=== PATIENT | female | born 1975 | race Hispanic/Latino ===

== ENCOUNTER 2024-05-17 15:59 | Emergency (ER) | payer OTHER, BC ==
[~2024-05-17] VITALS: Ht 160 cm; Wt 77.6 kg
[2024-05-17] MEDS ORDERED: CYCL10TA16 PO (17:28)
[2024-05-17] MEDS ORDERED: KETO10TA2 PO (17:28)
[2024-05-17] MEDS: ketOROlac 15MG/ML VIAL (15MG/ML) IM ONE (17:43)
[2024-05-17 17:54] VITALS: BP 164/80; PULSE 69; RESP 17; TEMP 98; O2SAT 96
== END 2024-05-17 18:15 | disposition home or self-care (01) ==
LOC: EDH 15:59
DX: S16.1XXA Strain of muscle, fascia and tendon at neck level, initial encounter (principal); S20.219A Contusion of unspecified front wall of thorax, initial encounter; Z79.899 Other long term (current) drug therapy; Z90.710 Acquired absence of both cervix and uterus; Z98.890 Other specified postprocedural states; V89.2XXA Person injured in unspecified motor-vehicle accident, traffic, initial encounter; Y93.89 Activity, other specified; Y92.488 Other paved roadways as the place of occurrence of the external cause; Y99.8 Other external cause status
CPT/HCPCS: 99285; 70450; 71045; 72125; 96372; J1885